=== PATIENT | male | born 1955 | race Caucasian/White ===

== ENCOUNTER 2019-09-09 06:00 | Outpatient (RCR) | payer OTHER, SELFPAY | END 2019-10-09 23:59 | disposition home or self-care (01) | LOC: APO 06:00 | PROVIDERS: Family Provider Family Medicine Adult Medicine; PCP Family Medicine Adult Medicine; Referring Provider Family Medicine Adult Medicine; Visit Provider Nurse Practitioner Family | DX: I69.351 Hemiplegia and hemiparesis following cerebral infarction affecting right dominant side (principal); Z86.73 Personal history of transient ischemic attack (TIA), and cerebral infarction without residual deficits | CPT/HCPCS: 97110; 97112; 97760 ==

== ENCOUNTER 2019-10-13 17:09 | Outpatient (RCR) | payer OTHER, SELFPAY | END 2019-11-07 23:59 | disposition home or self-care (01) | LOC: AOT 17:09 | PROVIDERS: Family Provider Family Medicine Adult Medicine; PCP Family Medicine Adult Medicine; Referring Provider Family Medicine Adult Medicine; Visit Provider Nurse Practitioner Family | DX: I69.352 Hemiplegia and hemiparesis following cerebral infarction affecting left dominant side (principal) | CPT/HCPCS: 97110; 97112; 97530 ==

== ENCOUNTER 2019-11-08 06:00 | Outpatient (RCR) | payer OTHER, SELFPAY | END 2019-12-08 23:59 | disposition home or self-care (01) | LOC: AOT 06:00 | PROVIDERS: Family Provider Family Medicine Adult Medicine; PCP Family Medicine Adult Medicine; Referring Provider Family Medicine Adult Medicine; Visit Provider Nurse Practitioner Family | DX: I69.352 Hemiplegia and hemiparesis following cerebral infarction affecting left dominant side (principal) | CPT/HCPCS: 97110; 97112; 97530 ==

== ENCOUNTER 2019-11-19 09:51 | Emergency (ER) | payer OTHER, SELFPAY ==
[2019-11-19 10:04] VITALS: BMI 25.8
--- NOTE | 2019-11-19 10:07 | ED_ITS ---
HPI - Extremity Problem General: Chief complaint: Extremity Injury, Lower Stated complaint: RIGHT FOOT PAIN Time Seen by Provider: 11/19/19 10:04 History of Present Illness: HPI Narrative: Patient is a 64-year-old male who comes to the ED with right great toe wound. Patient has a past medical history of diabetes with some early signs of neuropathy. Patient states that last Saturday he was walking around without white shoe for about 8 hours and then when he removed his shoe and sock on Saturday he noticed a wound was forming on his right big toe. Patient also has home health that comes out through the [place] and the nurse was setting up referral to computer networking instructor for patient. He has some mild pain when ambulating or pressures put on the right big toe. Patient denies any pain in his right big toe with movement. Patient denies any fever, chest pain, shortness of breath. Associated symptoms: Deny chest pain, fever(s) or rash Review of Systems Const: Denies: fever, chills or fatigue Eyes: Denies: change in vision or eye discomfort ENMT: Denies: throat pain, painful swallowing, nasal discharge or nasal congestion Card: Denies: chest pain, palpitations, edema, swelling of feet/ankles, shortness of breath on exertion or shortness of breath when lying down Resp: Denies: shortness of breath, productive cough or non-productive cough GI: Denies: abdominal pain, nausea, vomiting, diarrhea, constipation or blood in stool : Denies: flank pain, difficulty urinating, painful urination or blood in urine Musc: Reports: extremity pain (right big toe); Denies: neck pain, back pain or extremity swelling Skin/Breast: Reports: new lesion (right big toe wound); Denies: rash Neuro: Denies: headache, numbness in extremities or weakness in extremities PFS ED PFSH: Social History Smoking and tobacco status: never smoked Physical Exam Narrative: EXAM NARRATIVE: Patient is a 64-year-old male who is sitting comfortably on the exam bed when I enter the room. He is showing no signs of acute pain or distress. Const: COMMON NORMALS: oriented x3 HENMT: COMMON NORMALS: normocephalic HEAD & SCALP: normocephalic MOUTH: oral and palatal mucosa normal THROAT: posterior oropharynx normal and uvula midline Neck/C-Spine: COMMON NORMALS: supple GENERAL: Yes normal visual inspection Resp: COMMON NORMALS: normal respiratory effort, no retractions, no use of accessory muscles and clear to auscultation bilaterally AUSCULTATION: clear to auscultation bilaterally Cardio: COMMON NORMALS: regular rate, regular rhythm, S1 normal heart sound, S2 normal heart sound, no gallops, no clicks, no murmurs and peripheral pulses 2+ throughout RATE: regular rate RHYTHM: regular rhythm HEART SOUNDS: S1 normal and S2 normal PERIPHERAL PULSES: pulses 2+ throughout GI: COMMON NORMALS: normal to inspection, nondistended, normoactive bowel sounds, soft to palpation, non-tender and no masses PALPATION: Yes soft : COMMON NORMALS: Yes no CVA tenderness BLADDER/KIDNEY EXAM: Yes no CVA tenderness Back/Pelvis: COMMON NORMALS: no CVA tenderness Extremity: GENERAL: Yes normal exam except as noted RIGHT LOWER EXTREMITY: Yes foot & digits (Erythema, warmth, puss underneath skin.) Right foot and digits: Yes inspection (Right big toe has wound. Some skin tissue looks necrotic and there appears to be some pus underneath the skin.), Yes palpation (mild tenderness of right big toe) and Yes neurovascular exam (intact) Neuro: COMMON NORMALS: oriented x3 and moves all extremities Skin: NARRATIVE SKIN EXAM: Right big toe has wound. Some skin tissue looks necrotic and there appears to be some pus underneath the skin. Erythema and warmth around wound. GENERAL SKIN EXAM: dry skin Course Vital Signs: Vital signs: Vital Signs Temperature 98.3 F 11/19/19 12:48 Pulse Rate 71 11/19/19 12:48 Respiratory Rate 16 11/19/19 12:48 Blood Pressure 144/86 11/19/19 12:48 Pulse Oximetry 98 11/19/19 12:48 MDM - Extremity (Nontraumatic) Lab Data: Attestation: I reviewed the patient's lab results. Labs: Lab Results 11/19/19 11/19/19 11/19/19 Range/Units 11:06 11:06 11:10 WBC 8.8 (4.0-10.0) 10^3/ uL RBC 4.21 (4.1-5.3) 10^6/u L Hgb 11.8 (11.7-16.6) g/dL Hct 36.4 L (42.0-52.0) % MCV 86.5 (80-94) fL MCH 28.0 (28.0-34.0) pg MCHC 32.4 (30.0-36.0) g/dL RDW 12.1 (12.1-15.1) % Plt Count 243 (130-400) 10^3/c mm MPV 9.3 (7.4-10.4) fL Neut % (Auto) 68.6 % Lymph % (Auto) 16.3 % [place] % (Auto) 11.6 % Eos % (Auto) 2.8 % Baso % (Auto) 0.5 % Neut # (Auto) 6.0 (1.8-7.7) 10^3/u L Lymph # (Auto) 1.4 (0.8-4.8) 10^3/u L [place] # (Auto) 1.0 H (0.2-0.9) 10^3/u L Eos # (Auto) 0.3 (0.0-0.8) 10^3/u L Baso # (Auto) 0.0 (0.0-0.1) 10^3/u L Nucleated RBC % (a uto) 0 % Nucleated RBCs # 0.0 /100WBC ESR (0-10) mm/hr Sodium 132 L (136-145) mmol/L Potassium 4.9 (3.5-5.1) mmol/L Chloride 98 (98-107) mmol/L Carbon Dioxide 23 (22-29) mmol/L Anion Gap 15.9 (5-19) BUN 18 (8-23) mg/dL Creatinine 0.9 (0.7-1.2) mg/dL GFR Calculation 85.0 L (90-130) mL/min Glucose 252 H (65-115) mg/dL Calculated Osmolal ity 279 L (285-295) mOsm/k g Calcium 9.5 (8.5-10.5) mg/dL Total Bilirubin 0.2 (0.15-1.2) mg/dL AST 19 (0-40) U/L ALT 20 (0-41) U/L Alkaline Phosphata se 109 (40-130) IU/L C-Reactive Protein 4.2 (0.0-4.9) mg/L Total Protein 7.0 (6.6-8.7) g/dL Albumin 3.7 (3.5-5.2) g/dL Globulin 3.3 (1.3-4.6) g/dL 11/19/19 Range/Units 11:10 WBC (4.0-10.0) 10^3/ uL RBC (4.1-5.3) 10^6/u L Hgb (11.7-16.6) g/dL Hct (42.0-52.0) % MCV (80-94) fL MCH (28.0-34.0) pg MCHC (30.0-36.0) g/dL RDW (12.1-15.1) % Plt Count (130-400) 10^3/c mm MPV (7.4-10.4) fL Neut % (Auto) % Lymph % (Auto) % [place] % (Auto) % Eos % (Auto) % Baso % (Auto) % Neut # (Auto) (1.8-7.7) 10^3/u L Lymph # (Auto) (0.8-4.8) 10^3/u L [place] # (Auto) (0.2-0.9) 10^3/u L Eos # (Auto) (0.0-0.8) 10^3/u L Baso # (Auto) (0.0-0.1) 10^3/u L Nucleated RBC % (a uto) % Nucleated RBCs # /100WBC ESR 17 H (0-10) mm/hr Sodium (136-145) mmol/L Potassium (3.5-5.1) mmol/L Chloride (98-107) mmol/L Carbon Dioxide (22-29) mmol/L Anion Gap (5-19) BUN (8-23) mg/dL Creatinine (0.7-1.2) mg/dL GFR Calculation (90-130) mL/min Glucose (65-115) mg/dL Calculated Osmolal ity (285-295) mOsm/k g Calcium (8.5-10.5) mg/dL Total Bilirubin (0.15-1.2) mg/dL AST (0-40) U/L ALT (0-41) U/L Alkaline Phosphata se (40-130) IU/L C-Reactive Protein (0.0-4.9) mg/L Total Protein (6.6-8.7) g/dL Albumin (3.5-5.2) g/dL Globulin (1.3-4.6) g/dL Imaging Data^: Xray Ortho: Attestation: I personally reviewed and interpreted this imaging study as follows: Radiologist's impression: [address] [address] XRay Report Signed Patient: Kulwinder Sams Unit #: [id number] : 1955 Age/Sex: 64 / M ADM Date: 11/19/19 Loc: ER Room/Bed: Attending Dr: Ordering Provider/Ordering MD: Santo Zapien Date of Service: 11/19/19 Procedure(s): XR foot RT min 3V* 46106 Accession Number(s): [id number] Report Number: [id number] WS: [id number] Right foot, 3 views, 11/19/2019 Clinical Data: Pain on great toe with wound Comparison: None. Findings: No fractures or dislocations are seen. No bone destruction or erosion is noted. The joint spaces and soft tissues are normal. No radiopaque foreign body is seen. XR/XR foot RT min 3V* 31501 Impression: Negative right foot. Dictated By: Renay Hatch MD Signed By: Renay Hatch MD Signed Date/Time: 11/19/19 105 DD/ 105 Discharge Plan Discharge Patient Disposition: Home, Self-Care Clinical Impression: Wound infection Condition: Stable Prescriptions: New Bactrim DS 800-160 mg tablet 1 tab PO BID 10 Days Qty: 20 RF: 0 No Action atorvastatin 80 mg Tablet 80 mg PO DAILY RF: 0 tizanidine 4 mg Tablet 2 mg PO TID PRN (Reason: Spasms) RF: 0 prazosin 1 mg Capsule 1 mg PO QPM RF: 0 Plavix 75 mg Tablet 75 mg PO DAILY RF: 0 metformin 1,000 mg Tablet 1,000 mg PO BID RF: 0 lisinopril 10 mg Tablet 5 mg PO DAILY RF: 0 magnesium oxide 500 mg Tablet 500 mg PO DAILY RF: 0 carbamide peroxide 6.5 % Drops 5 drp OTIC (EAR) BID PRN (Reason: Ear Wax) RF: 0 Vitamin D3 2,000 unit Tablet 2,000 unit PO DAILY RF: 0 Discharge Orders: Discharge Order (Routine); Ordered 11/19/19 Ordered By: Santo Zapien Referrals: Jay Wright MD [Primary Care Provider] - Discharge Diet: Regular Discharge Activity: Resume usual activity and Increase activity as tolerated Patient Instructions: Wound Infection (ED) Activity Restrictions/Additional Instructions: Follow-up with your PCP in 5 to 7 days reevaluation. I am also putting a referral into wound clinic for you. The wound clinic will call you in a couple days to set up an appointment. Take full course of antibiotics as prescribed. Monitor wound changes daily and return to the ED for reevaluation if getting worse after taking a couple days worth of antibiotics. Discharge Date/Time: 11/19/19 12:51 Coding Level of Care Code ED Receptionist Doctor'S Office for Breanne Fwd Exam Comprehensive
[2019-11-19 10:09] VITALS: BP 153/77; PULSE 76; RESP 16; TEMP 36.6; O2SAT 97
[2019-11-19 10:22] VITALS: BP 153/77; PULSE 79; RESP 16; O2SAT 98
--- NOTE | 2019-11-19 10:38 | XR_ITS ---
WS: [id number] Right foot, 3 views, 11/19/2019 Clinical Data: Pain on great toe with wound Comparison: None. Findings: No fractures or dislocations are seen. No bone destruction or erosion is noted. The joint spaces and soft tissues are normal. No radiopaque foreign body is seen. XR/XR foot RT min 3V* 92963 Impression: Negative right foot.
[2019-11-19 11:22] LABS: Basophils % 0.5 %; Eosinophils # 0.3 10^3/uL (0.0-0.8); Eosinophils % 2.8 %; Hematocrit 36.4 % (42.0-52.0); Hemoglobin 11.8 g/dL (11.7-16.6); Lymphocytes # 1.4 10^3/uL (0.8-4.8); Lymphocytes % 16.3 %; Mean Corpuscular HGB Conc 32.4 g/dL (30.0-36.0); Mean Corpuscular Volume 86.5 fL (80-94); Mean Platelet Volume 9.3 fL (7.4-10.4); Monocytes % 11.6 %; Neutrophils % 68.6 %; Nucleated Red Blood Cells % 0 %; Platelet Count 243 10^3/cmm (130-400); Red Blood Count 4.21 10^6/uL (4.1-5.3); Red Cell Distribution Width 12.1 % (12.1-15.1); White Blood Count 8.8 10^3/uL (4.0-10.0)
[2019-11-19 11:24] VITALS: BP 138/74; PULSE 74; RESP 16; O2SAT 98
[2019-11-19 11:40] LABS: Alanine Aminotransferase 20 U/L (0-41); Albumin Level 3.7 g/dL (3.5-5.2); Alkaline Phosphatase 109 IU/L (40-130); Anion Gap 15.9 (5-19); Blood Urea Nitrogen 18 mg/dL (8-23); Calcium 9.5 mg/dL (8.5-10.5); Carbon Dioxide 23 mmol/L (22-29); Chloride 98 mmol/L (98-107); Globulin 3.3 g/dL (1.3-4.6); Glucose 252 mg/dL (65-115); Osmolality Calculated 279 mOsm/kg (285-295); Potassium 4.9 mmol/L (3.5-5.1); Sodium 132 mmol/L (136-145); Total Bilirubin 0.2 mg/dL (0.15-1.2)
--- NOTE | 2019-11-19 11:57 | DCPLANNER ---
manager city was asked to schedule a follow up appointment for patient with Wound Care. manager city called [facility], spoke with Mirella, a follow up appointment is scheduled for Saturday, November 23, 2019 at 2:00 with Marlen. Patient was given an appointment card with the appointment information on it.
[2019-11-19 11:59] LABS: C Reactive Protein 4.2 mg/L (0.0-4.9)
[2019-11-19 12:11] LABS: Aspartate Amino Transferase 19 U/L (0-40)
[2019-11-19 12:21] LABS: Erythrocyte Sedimentation Rate 17 mm/hr (0-10)
[2019-11-19] MEDS: sulfamethoxazole-trimeth DS 160-800 mg Tablet 1 TAB PO (12:24)
[2019-11-19 12:48] VITALS: BP 144/86; PULSE 71; RESP 16; TEMP 36.8; O2SAT 98
--- NOTE | 2019-11-20 12:14 | DCPLANNER ---
computer security manager had message to schedule a followup appointment for patient with Wound [facility]. Patient has [facility], medical case manager informed Mirella of this at [facility], a follow up appointment is scheduled for Saturday, November 23, 2019. computer security manager [facility], spoke with Eddi and informed him that patient was seen in the ER and that a follow up appointment is needed for patient. computer security manager [facility] the [facility].
--- NOTE | 2019-11-24 11:39 | DCPLANNER ---
Patient did attend appointment scheduled for 11.23.19 with Wound Care.
== END 2019-11-19 12:51 | disposition home or self-care (01) ==
PROVIDERS: Emergency Provider Physician Assistant; Family Provider Family Medicine Adult Medicine; PCP Family Medicine Adult Medicine
DX: S91.101A Unspecified open wound of right great toe without damage to nail, initial encounter (principal); E11.22 Type 2 diabetes mellitus with diabetic chronic kidney disease; Z79.84 Long term (current) use of oral hypoglycemic drugs
CPT/HCPCS: 12345; 36415; 73630; 80053; 85025; 85651; 86140; 87040; 87070; 87077; 87186; 87205; 99283

== ENCOUNTER 2019-12-07 10:27 | Outpatient (RCR) | payer OTHER, SELFPAY | END 2019-12-08 23:59 | disposition home or self-care (01) | LOC: WOUND 10:27 | PROVIDERS: Family Provider Family Medicine Adult Medicine; PCP Family Medicine Adult Medicine; Visit Provider Nurse Practitioner Family | DX: E11.621 Type 2 diabetes mellitus with foot ulcer (principal); L97.512 Non-pressure chronic ulcer of other part of right foot with fat layer exposed | CPT/HCPCS: 11042; 87070; 87077; 87176; 87186; 87205; 99203; G0463 ==

== ENCOUNTER 2019-12-09 06:00 | Outpatient (RCR) | payer OTHER, SELFPAY | END 2020-01-07 23:59 | disposition home or self-care (01) | LOC: AOT 06:00 | PROVIDERS: Family Provider Family Medicine Adult Medicine; PCP Family Medicine Adult Medicine; Referring Provider Family Medicine Adult Medicine; Visit Provider Nurse Practitioner Family | DX: I69.351 Hemiplegia and hemiparesis following cerebral infarction affecting right dominant side (principal) | CPT/HCPCS: 97110; 97112; 97530 ==

== ENCOUNTER 2020-01-04 08:33 | Outpatient (RCR) | payer OTHER, SELFPAY ==
--- NOTE | 2019-12-24 14:00 | USCV_ITS ---
Kulwinder Sams Age: 64 Gender: M : 1955 Exam Date: 12/24/2019 14:08 Ordering Phys: Lidia Coyle DO Technologist: Lee Wasserman Exam Location: [facility] [place] Indication: HISTORY: Lower extremity edema. PROCEDURES: Bilateral duplex Venous Insufficiency study of the Deep and Superficial systems was carried out according to normal protocol with the patient in supine positon for deep system and dependent position for the superficial system. FINDINGS: All deep veins demonstrated compressibility without evidence of intraluminal thrombus or increased echogenicity. Spectral analysis of Doppler signals demonstrates normal response to compression maneuvers indicating patency without obstruction. Reflux determinations were made with the patient in the dependent position, the weight being on the contralateral leg. Vein measurements and reflux times are listed below were applicable. No notable reflux was seen at this time. The veins were found to be easily compressible with spontaneous blood flow. Non pulsatile flow pattern. CONCLUSIONS No evidence of DVT in the above-mentioned identifiable veins. No significant venous reflux noted in the above mentioned identifiable veins Venous measurements and the depth from the surface are as mentioned above. Dr Inez Christianson MD [facility] (Electronically Signed) Final Date: 25 December 2019 14:50 S
--- NOTE | 2019-12-25 | USCV_ITS ---
Kulwinder Sams Age: 64 Gender: M : 1955 Exam Date: 12/25/2019 08:17 Ordering Phys: Lidia Coyle DO Technologist: Exam Location: [facility] [place]_ Indication: NON HEALING ULCER RIGHT LEFT Brachial 117.00 mmHg Brachial 116.00 mmHg Pressure (mmHg) Waveform Pressure (mmHg) Waveform 122.00 Above Knee 138.00 117.00 Below Knee 117.00 128.00 DENTAL ASSOCIATE 116.00 119.00 DPA 112.00 1.09 Ankle/Brachial Index 0.99 100.00 Pre-Exercise Toe Pressure 78.00 0.85 Pre-Exercise Toe/Brachial Index 0.67 FINDINGS Normal: Resting ABIs bilaterally. Normal resting TBI on the right side Slightly diminished resting TBI on the left side. CONCLUSIONS Features suggestive of mild peripheral arterial disease on the left side. No significant arterial obstructioin on the right side Dr Inez Christianson MD [facility] (Electronically Signed) Final Date: 25 December 2019 15:01 S
== END 2020-01-07 23:59 | disposition home or self-care (01) ==
LOC: WOUND 08:33
PROVIDERS: Family Provider Family Medicine Adult Medicine; PCP Family Medicine Adult Medicine; Visit Provider Nurse Practitioner Family
DX: E11.621 Type 2 diabetes mellitus with foot ulcer (principal); L97.512 Non-pressure chronic ulcer of other part of right foot with fat layer exposed
CPT/HCPCS: 11042; 93923; 93970; L3260

== ENCOUNTER 2020-01-08 06:00 | Outpatient (RCR) | payer OTHER, SELFPAY | END 2020-02-07 23:59 | disposition home or self-care (01) | LOC: AOT 06:00 | PROVIDERS: PCP Family Medicine Adult Medicine; Referring Provider Family Medicine Adult Medicine; Visit Provider Nurse Practitioner Family | DX: I69.351 Hemiplegia and hemiparesis following cerebral infarction affecting right dominant side (principal) | CPT/HCPCS: 97112; 97530 ==

== ENCOUNTER 2020-01-11 08:46 | Outpatient (RCR) | payer OTHER, SELFPAY | END 2020-02-07 23:59 | disposition home or self-care (01) | LOC: WOUND 08:46 | PROVIDERS: Family Provider Family Medicine Adult Medicine; PCP Family Medicine Adult Medicine; Visit Provider Emergency Medicine | DX: E11.621 Type 2 diabetes mellitus with foot ulcer (principal); L97.512 Non-pressure chronic ulcer of other part of right foot with fat layer exposed | CPT/HCPCS: 11042; 87070; 87077; 87176; 87186; 87205 ==

== ENCOUNTER 2020-01-14 13:54 | Outpatient (CLI) | payer OTHER, SELFPAY | END 2020-01-14 13:55 | disposition home or self-care (01) | LOC: WOUND 13:55 | PROVIDERS: Family Provider Family Medicine Adult Medicine; PCP Family Medicine Adult Medicine; Visit Provider Nurse Practitioner Family | DX: E11.621 Type 2 diabetes mellitus with foot ulcer (principal); L97.512 Non-pressure chronic ulcer of other part of right foot with fat layer exposed | CPT/HCPCS: G0463 ==

== ENCOUNTER 2020-01-18 09:25 | Outpatient (CLI) | payer OTHER, SELFPAY | END 2020-01-18 09:26 | disposition home or self-care (01) | LOC: WOUND 09:25 | PROVIDERS: Family Provider Family Medicine Adult Medicine; PCP Family Medicine Adult Medicine; Visit Provider Nurse Practitioner Family | DX: E11.621 Type 2 diabetes mellitus with foot ulcer (principal); L97.512 Non-pressure chronic ulcer of other part of right foot with fat layer exposed | CPT/HCPCS: 11042 ==

== ENCOUNTER 2020-01-25 09:31 | Outpatient (CLI) | payer OTHER, SELFPAY | END 2020-01-25 09:32 | disposition home or self-care (01) | LOC: WOUND 09:32 | PROVIDERS: PCP Family Medicine Adult Medicine; Visit Provider Nurse Practitioner Family | DX: E11.621 Type 2 diabetes mellitus with foot ulcer (principal); L97.512 Non-pressure chronic ulcer of other part of right foot with fat layer exposed | CPT/HCPCS: 11042 ==

== ENCOUNTER 2020-02-04 13:04 | Outpatient (CLI) | payer OTHER, SELFPAY | END 2020-02-04 13:05 | disposition home or self-care (01) | LOC: WOUND 13:05 | PROVIDERS: PCP Family Medicine Adult Medicine; Visit Provider Nurse Practitioner Family | DX: E11.621 Type 2 diabetes mellitus with foot ulcer (principal); L97.512 Non-pressure chronic ulcer of other part of right foot with fat layer exposed | CPT/HCPCS: 11042 ==

== ENCOUNTER 2020-02-08 06:00 | Outpatient (RCR) | payer OTHER, SELFPAY | END 2020-03-08 23:59 | disposition home or self-care (01) | LOC: AOT 06:00 | PROVIDERS: PCP Family Medicine Adult Medicine; Visit Provider Nurse Practitioner Family | DX: I69.351 Hemiplegia and hemiparesis following cerebral infarction affecting right dominant side (principal) | CPT/HCPCS: 97110; 97112; 97530 ==

== ENCOUNTER 2020-02-08 09:10 | Outpatient (CLI) | payer OTHER, SELFPAY | END 2020-02-08 09:11 | disposition home or self-care (01) | LOC: WOUND 09:11 | PROVIDERS: Family Provider Family Medicine Adult Medicine; PCP Family Medicine Adult Medicine; Visit Provider Nurse Practitioner Family | DX: E11.621 Type 2 diabetes mellitus with foot ulcer (principal); L97.512 Non-pressure chronic ulcer of other part of right foot with fat layer exposed | CPT/HCPCS: 11042 ==

== ENCOUNTER 2020-02-15 08:55 | Outpatient (CLI) | payer OTHER, SELFPAY | END 2020-02-15 08:56 | disposition home or self-care (01) | LOC: WOUND 08:55 | PROVIDERS: Family Provider Family Medicine Adult Medicine; PCP Family Medicine Adult Medicine; Visit Provider Nurse Practitioner Family | DX: E11.621 Type 2 diabetes mellitus with foot ulcer (principal); L97.512 Non-pressure chronic ulcer of other part of right foot with fat layer exposed | CPT/HCPCS: 11042 ==

== ENCOUNTER 2020-02-22 08:59 | Outpatient (CLI) | payer OTHER, SELFPAY | END 2020-02-22 09:00 | disposition home or self-care (01) | LOC: WOUND 09:00 | PROVIDERS: Family Provider Family Medicine Adult Medicine; PCP Family Medicine Adult Medicine; Visit Provider Nurse Practitioner Family | DX: E11.621 Type 2 diabetes mellitus with foot ulcer (principal); L97.512 Non-pressure chronic ulcer of other part of right foot with fat layer exposed | CPT/HCPCS: 11042 ==

== ENCOUNTER 2020-02-29 08:55 | Outpatient (CLI) | payer OTHER, SELFPAY | END 2020-02-29 08:56 | disposition home or self-care (01) | LOC: WOUND 08:56 | PROVIDERS: Family Provider Family Medicine Adult Medicine; PCP Family Medicine Adult Medicine; Visit Provider Nurse Practitioner Family | DX: Z09 Encounter for follow-up examination after completed treatment for conditions other than malignant neoplasm (principal) | CPT/HCPCS: 99212 ==

== ENCOUNTER 2020-03-09 06:00 | Outpatient (RCR) | payer OTHER, SELFPAY | END 2020-04-08 23:59 | disposition home or self-care (01) | LOC: AOT 06:00 | PROVIDERS: Family Provider Family Medicine Adult Medicine; PCP Family Medicine Adult Medicine; Visit Provider Nurse Practitioner Family | DX: I69.352 Hemiplegia and hemiparesis following cerebral infarction affecting left dominant side (principal) | CPT/HCPCS: 97110; 97112; 97530 ==

== ENCOUNTER 2020-04-09 06:00 | Outpatient (RCR) | payer OTHER, SELFPAY | END 2020-05-09 23:59 | disposition home or self-care (01) | LOC: AOT 06:00 | PROVIDERS: Family Provider Family Medicine Adult Medicine; PCP Family Medicine Adult Medicine; Visit Provider Nurse Practitioner Family | DX: I69.351 Hemiplegia and hemiparesis following cerebral infarction affecting right dominant side (principal) | CPT/HCPCS: 97110; 97112; 97530 ==

== ENCOUNTER → 2020-05-11 11:23 | Outpatient (BNVA) | payer OTHER, MEDICARE, SELFPAY | PROVIDERS: Family Provider Family Medicine Adult Medicine; PCP Family Medicine Adult Medicine; Visit Provider Nurse Practitioner Family | DX: J06.9 Acute upper respiratory infection, unspecified (principal) | CPT/HCPCS: 87635 ==

== ENCOUNTER 2020-12-01 17:21 | Emergency (ER) | payer OTHER, MEDICARE, SELFPAY ==
[2020-12-01 17:23] VITALS: BP 224/105; PULSE 73; RESP 18; TEMP 36.6; O2SAT 98; BMI 27.2
[2020-12-01 17:50] VITALS: O2SAT 95
--- NOTE | 2020-12-01 17:54 | XR_ITS ---
WS: [id number] Exam: XR chest 1V portable [id number] Date/Time of Exam: 12/01/2020 6:04 PM Reason For Exam: HTN Comparison 02/20/2018. Findings: The lungs are clear and fully expanded. Costophrenic angles are sharp. No infiltrates. Bronchovascula r relief appears normal. Cardiac silhouette is unremarkable. Bony elements are intact. XR/XR chest 1V portable [id number] IMPRESSION: Unremarkable chest radiograph.
--- NOTE | 2020-12-01 17:54 | ECG_ITS ---
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 Measurements Intervals [place] Rate: 66 P: 43 [place]: 168 QRS: -24 QRSD: 101 T: 37 QT: 396 QTc: 416 Interpretive Statements SINUS RHYTHM BORDERLINE LEFT AXIS DEVIATION [QRS AXIS < -20] Compared to ECG 02/20/2018 10:34:20 Myocardial infarct finding no longer present Electronically Signed On 12-01-2020 20:39:57 CDT by Inez Christianson M.D. [id number]
--- NOTE | 2020-12-01 17:55 | W.ED.GENADLT ---
HPI - General Adult General: Chief complaint: General Medical Stated complaint: HIGH BP/stroke history Time Seen by Provider: 12/01/20 17:44 Source: patient and family (spouse) Mode of arrival: ambulatory Limitations: no limitations History of Present Illness: HPI narrative: 65-year-old male patient presents to the emergency department with complaints/concern of high blood pressure. He states previous strokes history, thrombolytic, residual left upper and lower extremity weakness. Stroke occurred 3 years ago, uncontrolled hypertension as cause of CVA. Primary care provider's [facility]; states the nurse came to his home today, blood pressure was noted to be elevated earlier this morning; 200/110. His spouse reports took his blood pressure again this afternoon with blood pressure reading 200/110. She reports does not routinely take his blood pressure, unknown what baseline blood pressure readings are. He remains on lisinopril daily, reports compliance with medication regimen. He has history of diabetes, glucose reading 135 before he left home. He denies chest pain shortness of breath; spouse reports he did not have symptoms prior to his previous stroke and is concerned he could be in danger due to high blood pressure. Upon exam he is also stating has a floater in the right eye, this has been chronic for several weeks. He recently received ocular injections by Dr. Maurice to the right eye. He reports floater in the right eye is better than it was 2 weeks ago. He denies difficulty with vision, denies flashes of light or denies difficulty seeing from the right eye. He reports has upcoming appointment with Dr. Maurice for follow-up. Associated symptoms: Deny chest pain, diaphoresis, dyspnea, headache(s), malaise, nausea, rash, palpitations or vomiting Review of Systems General: Reports: 10 or more systems reviewed and unremarkable except in HPI and below Const: Denies: fever(s), chills, fatigue, malaise or diaphoresis Eyes: Reports: floaters (rt eye - chronic); Denies: change in vision, blurry vision, eye redness or seeing flashes ENMT: Denies: throat pain, dental pain or disequilibrium Card: Denies: chest pain, palpitations or irregular heart rhythm Resp: Denies: dyspnea, productive cough, non-productive cough or wheezing GI: Denies: abdominal pain, nausea or vomiting : Denies: dysuria Musc: Reports: limited range of motion (LLE and LUE due to CVA 2017); Denies: neck pain, back pain or joint pain Skin/Breast: Denies: rash or pruritus Neuro: Denies: headache(s), weakness in extremities or behavioral changes Psych: Denies: anxiety or depression Neel/Lymph: Denies: easy bruising PFSH ED PFSH: Medical History CVA (cerebrovascular accident) Diabetes History of CVA with residual deficit HTN (hypertension) Social History (Updated 12/01/20 @ 18:05 by ALDO Love) Smoking and tobacco status: never smoked Alcohol intake: never Substance/Drug Use: never Lives independently: Yes Household members: spouse Physical Exam Const: COMMON NORMALS: no acute distress, patient oriented x3, healthy appearing, alert and well nourished EXAM LIMITATIONS: no altered mental status and no physical limitations GENERAL APPEARANCE: cooperative, comfortable, well kempt, well developed and well hydrated; not anxious NUTRITIONAL APPEARANCE: thin ORIENTATION/CONSCIOUSNESS: Yes awake, Yes oriented to person, Yes oriented to place and Yes oriented to time; not confused and not patient obtunded HENMT: COMMON NORMALS: normocephalic, atraumatic, Normal external nose present and moist oral mucous membranes HEAD & SCALP: normocephalic and atraumatic FACE & SINUS: normal facial exam and face symmetric NOSE: Normal external nose present MOUTH: Normal oral and palatal mucosa present THROAT: posterior oropharynx normal Eye: COMMON NORMALS: Equal, round and reactive pupils present, EOMs intact bilaterally, conjunctivae normal, no scleral icterus and normal visual long by confrontation GENERAL EYE: appearance normal, both eyes and all related structures and normal light reflex VISUAL ACUITY: No complete vision loss VISUAL LONG: No peripheral vision loss, No central vision loss, No left visual field cut and No right visual field cut ALIGNMENT: Yes alignment normal PERIORBITAL: periorbital findings normal CONJUNCTIVA: Yes conjunctivae normal PUPIL: Yes Equal, round and reactive pupils present, Yes pupil size - right Right pupil size (mm): 3 and Yes pupil size - left Left pupil size (mm): 3 DIRECT OPHTHALMOSCOPY: Yes normal light reflex Neck/C-Spine: COMMON NORMALS: full ROM and no lymphadenopathy GENERAL: Yes normal visual inspection and Yes trachea midline CERVICAL SPINE: Yes cervical ROM normal Lymph: LYMPHATIC: no lymphadenopathy noted Chest: COMMONS NORMALS: normal inspection of the chest and normal palpation of entire chest wall Resp: COMMON NORMALS: normal respiratory effort, No retractions, No use of accessory muscles and clear to auscultation bilaterally EFFORT & INSPECTION: Yes able to speak in complete sentences, No labored, No retractions and No audible wheezes AUSCULTATION: clear to auscultation bilaterally Cardio: COMMON NORMALS: regular rate, regular rhythm, S1 normal heart sound present, S2 normal heart sound present and Peripheral pulses 2+ throughout RATE: regular rate RHYTHM: regular rhythm HEART SOUNDS: S1 normal heart sound present and S2 normal heart sound present PERIPHERAL PULSES: Peripheral pulses 2+ throughout GI: COMMON NORMALS: Normal to inspection, nondistended, normoactive bowel sounds present, Soft to palpation and non-tender INSPECTION: Yes normal to inspection PALPATION: Yes Soft to palpation : COMMON NORMALS: Yes no CVA tenderness BLADDER/KIDNEY EXAM: Yes no CVA tenderness Back/Pelvis: COMMON NORMALS: no CVA tenderness and thoracic and lumbar spine normal to inspection Extremity: COMMON NORMALS: normal to inspection and capillary refill normal Neuro: CATRACHO COMA SCALE: document GCS findings [place] coma scale eye opening: Spontaneous [place] coma scale verbal response: Orientated [place] coma scale motor response: Obey commands [place] coma scale total score: 15 COMMON NORMALS: patient oriented x3 and no focal motor deficits SENSORIUM/ORIENTATION: Yes alert, Yes oriented to person, Yes oriented to place and Yes oriented to time SPEECH: speech normal GAIT: Yes Normal gait present MOTOR EXAM: Abnormal motor strength present (LUE 3/5; LLE 3/5 - RUE and RLE 5/5) Psych: COMMON NORMALS: mental status grossly normal, Normal thought process present and cooperative APPEARANCE: Yes well kempt ACTIVITY/MOTOR BEHAVIOR: Yes appropriate eye contact THOUGHT PROCESS: Normal thought process present Skin: COMMON NORMALS: no rashes or lesions noted, turgor normal, no petechiae and no mottling GENERAL SKIN EXAM: no rashes or lesions noted, elasticity normal and turgor normal Course Vital Signs: Vital signs: Vital Signs Temperature 97.9 F 12/01/20 19:30 Pulse Rate 62 12/01/20 19:30 Respiratory Rate 20 H 12/01/20 19:30 Blood Pressure 188/94 12/01/20 19:30 Pulse Oximetry 98 12/01/20 19:30 MDM - General Adult MDM Narrative: Medical decision making narrative: 65-year-old male patient presents to the emergency department with known hypertension. Blood pressure is noted to be elevated upon exam, 224/105. He was administered metoprolol tartrate IV. He was also administered an additional dose of lisinopril. Blood pressure did lower, he reports previous history of this in the past with decrease dosage of blood pressure due to low blood pressure. He reports has not followed up with [facility] secondary to Covid for primary care provider visit in 1 to 2 years. rehab services aide referral placed today for patient to have primary care appointment for blood pressure issue. He is not symptomatic, he denies headache or chest pain/shortness of breath. He states is wanting to go home and does not want to be here. His is comfortable with monitoring his blood pressure at home, lisinopril increased to 5 mg p.o. twice daily with recommendation to monitor his blood pressure daily and record and to take recordings to primary care follow-up. EKG was without acute abnormalities. Lab Data: Labs: Lab Results 12/01/20 12/01/20 12/01/20 Range/Units 18:23 18:23 18:23 WBC 9.4 (4.0-10.0) 10^3/ uL RBC 4.33 (4.1-5.3) 10^6/u L Hgb 12.4 (11.7-16.6) g/dL Hct 37.8 L (42.0-52.0) % MCV 87.3 (80-94) fL MCH 28.6 (28.0-34.0) pg MCHC 32.8 (30.0-36.0) g/dL RDW 12.7 (12.1-15.1) % Plt Count 234 (130-400) 10^3/c mm MPV 10.0 (7.4-10.4) fL Neut % (Auto) 68.7 % Lymph % (Auto) 17.0 % [place] % (Auto) 9.8 % Eos % (Auto) 3.9 % Baso % (Auto) 0.4 % Neut # (Auto) 6.42 (1.8-7.7) 10^3/u L Lymph # (Auto) 1.6 (0.8-4.8) 10^3/u L [place] # (Auto) 0.9 (0.2-0.9) 10^3/u L Eos # (Auto) 0.4 (0.0-0.8) 10^3/u L Baso # (Auto) 0.0 (0.0-0.1) 10^3/u L Nucleated RBC % (a uto) 0 % Nucleated RBCs # 0.0 /100WBC Sodium 143 (136-145) mmol/L Potassium 4.3 (3.5-5.1) mmol/L Chloride 107 (98-107) mmol/L Carbon Dioxide 27 (22-29) mmol/L Anion Gap 13.3 (5-19) BUN 13 (8-23) mg/dL Creatinine 0.8 (0.7-1.2) mg/dL GFR Calculation 97.0 (90-130) mL/min Glucose 121 H (65-115) mg/dL Calculated Osmolal ity 297 H (285-295) mOsm/k g Calcium 8.3 L (8.5-10.5) mg/dL Total Bilirubin 0.3 (0.15-1.2) mg/dL AST 19 (0-40) U/L ALT 22 (0-41) U/L Alkaline Phosphata se 100 (40-130) IU/L Troponin T Baselin e 15 (0-15) ng/L Total Protein 6.4 L (6.6-8.7) g/dL Albumin 4.2 (3.5-5.2) g/dL Globulin 2.2 (1.3-4.6) g/dL EKG Data^: EKG 1: EKG interpretation date: 12/01/20 EKG interpretation time: 18:18 Prior EKG tracings: not available for review Other EKG comments: SINUS RHYTHM BORDERLINE LEFT AXIS DEVIATION [QRS AXIS < -20] Compared to ECG 02/20/2018 10:34:20 Myocardial infarct finding no longer present Ventricular rate 66 Discharge Plan Discharge Patient Disposition: Home Clinical Impression: HTN (hypertension) Qualifiers: Hypertension type: essential hypertension Qualified Code(s): I10 - Essential (primary) hypertension Condition: Stable Prescriptions: New lisinopril 5 mg tablet 5 mg PO BID Qty: 20 RF: 0 Discontinued lisinopril 10 mg Tablet 5 mg PO DAILY@06 RF: 0 No Action atorvastatin 80 mg Tablet 80 mg PO BEDTIME RF: 0 tizanidine 4 mg Tablet See Rx Instructions .ROUTE .COMPLEX PRN (Reason: Spasms) RF: 0 prazosin 1 mg Capsule 1 mg PO QPM RF: 0 clopidogrel [Plavix] 75 mg Tablet 75 mg PO DAILY@06 RF: 0 metformin 1,000 mg Tablet 1,000 mg PO BID RF: 0 latanoprost 0.005 % drops 1 drp ophthalmic (eye) BEDTIME RF: 0 Lumigan 0.01 % drops 1 drp ophthalmic (eye) QPM RF: 0 Discharge Orders: Discharge ED (Routine); Ordered 12/01/20 Ordered By: Kacie Gaytan Referrals: Jay Wright MD [Primary Care Provider] - Discharge Diet: Cardiac Discharge Activity: Resume usual activity Patient Instructions: Chronic Hypertension (ED), Hypertensive Crisis (ED), Opioid Safety Activity Restrictions/Additional Instructions: Increase lisinopril to 5 mg by mouth twice daily rehab services aide will be contacting [facility], appointment will be needed in the next 5 to 7 days Low-sodium diet encouraged, low-sodium diet will help lower blood pressure Take blood pressure daily while at rest for 30 minutes. Record blood pressure reading and take to your primary care provider Return to the emergency department if you develop worsening symptoms such as chest pain shortness of breath nausea or headache. Coding Level of Care Code ED Patternator for Breanne Arenas Exam Comprehensive
--- NOTE | 2020-12-01 18:03 | PC.PHAR ---
PTS STATES THE PT TAKES THE MEDICATIONS ENTERED-PT BROUGHT IN MED LIST FROM THE [facility]-PTS [facility] MED LIST HAD THE PT TOOK MAGNESIUM AND VIT D3 PT AND PTS STATES THE PT NO LONGER TAKES THOSE-PT STATES HE IS STILL WAITING FOR THE [facility] TO SEND HIS LATANOPROST AND LUMIGAN
[2020-12-01 18:26] VITALS: BP 197/102; PULSE 64; RESP 16; O2SAT 97
[2020-12-01 18:45] LABS: Basophils % 0.4 %; Eosinophils # 0.4 10^3/uL (0.0-0.8); Eosinophils % 3.9 %; Hematocrit 37.8 % (42.0-52.0); Hemoglobin 12.4 g/dL (11.7-16.6); Lymphocytes # 1.6 10^3/uL (0.8-4.8); Mean Corpuscular HGB Conc 32.8 g/dL (30.0-36.0); Mean Corpuscular Hemoglobin 28.6 pg (28.0-34.0); Mean Corpuscular Volume 87.3 fL (80-94); Monocytes # 0.9 10^3/uL (0.2-0.9); Monocytes % 9.8 %; Neutrophils # 6.42 10^3/uL (1.8-7.7); Neutrophils % 68.7 %; Nucleated Red Blood Cells % 0 %; Platelet Count 234 10^3/cmm (130-400); Red Blood Count 4.33 10^6/uL (4.1-5.3); Red Cell Distribution Width 12.7 % (12.1-15.1); White Blood Count 9.4 10^3/uL (4.0-10.0)
[2020-12-01] MEDS: lisinopril 5 mg Tablet PO (18:49)
[2020-12-01] MEDS: metoprolol tartrate 1 mg/1 mL SDV 5 mL 2.5 MG IV (18:49)
[2020-12-01 19:03] LABS: Alanine Aminotransferase 22 U/L (0-41); Albumin Level 4.2 g/dL (3.5-5.2); Alkaline Phosphatase 100 IU/L (40-130); Anion Gap 13.3 (5-19); Aspartate Amino Transferase 19 U/L (0-40); Blood Urea Nitrogen 13 mg/dL (8-23); Calcium 8.3 mg/dL (8.5-10.5); Carbon Dioxide 27 mmol/L (22-29); Chloride 107 mmol/L (98-107); Globulin 2.2 g/dL (1.3-4.6); Glucose 121 mg/dL (65-115); Osmolality Calculated 297 mOsm/kg (285-295); Potassium 4.3 mmol/L (3.5-5.1); Sodium 143 mmol/L (136-145); Total Bilirubin 0.3 mg/dL (0.15-1.2); Total Protein 6.4 g/dL (6.6-8.7); Troponin(5th) Baseline 15 ng/L (0-15)
[2020-12-01 19:30] VITALS: BP 188/94; PULSE 62; RESP 20; TEMP 36.6; O2SAT 98
--- NOTE | 2020-12-08 14:28 | DCPLANNER ---
[employer] rede[employer] site manager had message to schedule a follow up appointment for patient with his [facility] provider. 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
== END 2020-12-01 19:32 | disposition home or self-care (01) ==
PROVIDERS: Emergency Provider Nurse Practitioner Family; PCP Family Medicine Adult Medicine
DX: I10 Essential (primary) hypertension (principal); Z79.02 Long term (current) use of antithrombotics/antiplatelets; Z79.84 Long term (current) use of oral hypoglycemic drugs; Z86.73 Personal history of transient ischemic attack (TIA), and cerebral infarction without residual deficits; E11.9 Type 2 diabetes mellitus without complications
CPT/HCPCS: 71045; 80053; 84484; 85025; 93005; 96374; 99284; J3490

== ENCOUNTER 2021-08-29 11:12 | Outpatient (RCR) | payer OTHER, MEDICARE, SELFPAY | END 2021-09-08 23:59 | disposition home or self-care (01) | LOC: TPT 11:12 | PROVIDERS: PCP Family Medicine Adult Medicine; Referring Provider Nurse Practitioner Family; Visit Provider Nurse Practitioner Family | DX: I69.352 Hemiplegia and hemiparesis following cerebral infarction affecting left dominant side (principal) | CPT/HCPCS: 97110; 97112; 97163 ==

== ENCOUNTER 2021-09-09 06:00 | Outpatient (RCR) | payer OTHER, SELFPAY | END 2021-09-19 23:59 | disposition home or self-care (01) | LOC: TPT 06:00 | PROVIDERS: PCP Family Medicine Adult Medicine; Referring Provider Nurse Practitioner Family; Visit Provider Nurse Practitioner Family | DX: I69.352 Hemiplegia and hemiparesis following cerebral infarction affecting left dominant side (principal) | CPT/HCPCS: 97110 ==

== ENCOUNTER 2022-01-02 14:24 | Outpatient (CLI) | payer OTHER, SELFPAY ==
[2022-01-02 15:20] LABS: Reticulocyte % 0.6 % (0.5-2.0)
[2022-01-02 15:21] LABS: Basophils % 0.5 %; Eosinophils # 0.2 10^3/uL (0.0-0.8); Eosinophils % 2.8 %; Hematocrit 32.7 % (42.0-52.0); Hemoglobin 10.7 g/dL (11.7-16.6); Lymphocytes # 1.3 10^3/uL (0.8-4.8); Mean Corpuscular HGB Conc 32.7 g/dL (30.0-36.0); Mean Corpuscular Hemoglobin 28.8 pg (28.0-34.0); Mean Corpuscular Volume 87.9 fl (80-94); Mean Platelet Volume 10.1 fL (7.4-10.4); Monocytes # 0.7 10^3/uL (0.2-0.9); Monocytes % 8.9 %; Neutrophils # 5.92 10^3/uL (1.8-7.7); Nucleated Red Blood Cells % 0 %; Platelet Count 244 10^3/cmm (130-400); Red Blood Count 3.72 10^6/uL (4.1-5.3); Red Cell Distribution Width 12.4 % (12.1-15.1); White Blood Count 8.3 10^3/uL (4.0-10.0)
[2022-01-02 15:46] LABS: Ferritin 516 ng/mL (30-400); Iron 71 ug/dL (59-158); Percent Saturation 35.6 % (20-50); Total Iron Binding Capacity 199 mcg/dl; Unsaturated Iron Binding 128 ug/dL (112-347)
[2022-01-02 15:58] LABS: Vitamin B12 326 pg/mL (232-1245)
--- NOTE | 2022-01-03 10:04 | ONC CON_ITS ---
Dr. Kline New Patient Note Patient: Kulwinder Sams Unit #: [id number]: 1955 Dicatated By: David Kline M.D.Date of Visit: Jan 02, 2022 Onc MED New Patient/Consult Referring Physician: Leeann Paulson A.P.N. History of Present Illness: Mr. Kulwinder Sams, is a 66-year-old gentleman with a history of hemorrhagic stroke causing left-sided weakness, found to have iron deficiency anemia during his routine 3 monthly follow-up lab work-up, as per patient around 2020, nursing practitioner called him and informed him about low hemoglobin and send him oral iron supplements and also did some stool test which came back negative for any blood. He has been taking oral iron 1 tablet a day and tolerating well. Patient denies any history of anemia prior to that, denies any history of blood transfusion. Patient said he never had colonoscopy done but may be EGD about 10 years ago. Denies any melena or hematochezia but now dark-colored stools since on oral iron, no hemoptysis or hematemesis, no hematuria, no jaundice, no abdominal pain, no weight loss rather gain, no night sweats, no fever chills, patient denies alcohol use but has history of alcohol use in the past, denies smoking. Patient has history of left-sided weakness due to hemorrhagic stroke about 3 years ago so not very active physically. Denies any shortness of breath or dyspnea on exertion, denies any palpitation.As per patient since he is on oral iron, he is feeling well but his hemoglobin is going up and down so he was sent to us for evaluation regarding need for parenteral iron. Past Medical History: Mr. Sams's medical history consists of adjustment disorder, cerebral infarction, depression, hyperlipidemia, hypertensive heart disease, insomnia, internal carotid artery stenosis, left side spastic hemiplegia, ocular hypertension, post traumatic stress disorder, and type II diabetes. Past Surgical History: There is no documented surgical history. Medications: Latanoprost 1 Drop(s) (of 0.005 %) Solution Ophthalmic at bedtime, metFORMIN HCl 1 Tablet (of 500 mg) Oral daily, Prazosin HCl 1 Capsule (of 1 mg) Oral at bedtime, tiZANidine HCl 0.5 Tablet (of 4 mg) Oral t.i.d. PRN Allergies: bee stings Social History: Mr. Sams is . Mr. Sams has never smoked. He has no history of drinking. Family History: There is no documented family history. Review Of Symptoms: Review of Systems is not available for this patient. Vital Signs: Performed on Jan 02, 2022 15:48: 66.00 in, 194/94 mm(hg) (HIGH), Performed on Jan 02, 2022 15:47: 1, 0, 26.31, 1.83 sq.m, 99 %, 66 /min, 16 /min, 98.0 F (LOW), and 163.0 lbs. Performance Status: 1 - No physically strenuous activity, but ambulatory and able to carry out light or sedentary work (e.g. office work, light house work). (ECOG) Physical Examination: ENMT - No mouth sores, no thrush, no jaundice, no cervical lymphadenopathy, Respiratory - Lungs are clear to auscultation, Cardiovascular - Regular rate and rhythm of heart, Abdomen - Soft, bowel sounds present, Extremities - No visible edema, on limited neuro exam left-sided weakness. Lab/Imaging: Most recent lab results are not available for this patient. Impression: Normocytic normochromic anemia, diagnosed in July 2021, etiology unclear could be multifactorial including iron deficiency/B12 deficiency or anemia of chronic disease or underlying myelodysplasia. On oral iron since August 2021 History of hemorrhagic stroke causing left-sided weakness Plan: Discussed with patient regarding his labs white blood count 8.3 hemoglobin 10.7 g hematocrit 32.7 platelets 244,000 MCV 87.9 reticulocyte count 0.6, iron studies shows iron saturation 35.6% TIBC 199 ferritin 516, iron 71, B12 326 Clinically, patient is doing well, has well compensated mild/moderate anemia, on oral iron, 1 tablet a day, tolerating well, his follow-up lab work-up done today shows improvement in his hemoglobin compared to 9.7 g on December 14, 2021 His iron stores is adequate, B12 is on the low side of normal range, at this point, as follow-up CBC showed improvement in hemoglobin, we will continue with daily oral iron as he is tolerating it well, for better absorption, patient was advised to take it on empty stomach with vitamin C or orange juice. And follow-up CBC shows no further improvement in hemoglobin while iron stores remained within normal range, may consider adding B12 supplement as B12 level on the lower side of normal range can cause anemia too. And we will also refer him to gastroenterology for EGD/colonoscopy to rule out source of chronic GI blood loss causing iron deficiency anemia. Return to clinic in 1 month with CBC and iron studies Signed By: David Kline M.D. <<Signature on File>>
== END 2022-01-02 14:25 | disposition home or self-care (01) ==
PROVIDERS: PCP Family Medicine Adult Medicine; Visit Provider Internal Medicine Hematology & Oncology
DX: D64.9 Anemia, unspecified (principal); I69.354 Hemiplegia and hemiparesis following cerebral infarction affecting left non-dominant side
CPT/HCPCS: 36415; 82607; 82728; 83540; 83550; 85025; 85045; 99204

== ENCOUNTER 2022-01-26 09:07 | Oncology outpatient (recurring) (ONCR) | payer OTHER, SELFPAY ==
[2022-01-26] MEDS: cyanocobalamin 1,000 mcg/mL SDV 1000 MCG IM (11:14)
== END 2022-02-06 23:59 | disposition home or self-care (01) ==
LOC: ONCMED 09:09
PROVIDERS: PCP Family Medicine Adult Medicine; Visit Provider Internal Medicine Hematology & Oncology
DX: D50.9 Iron deficiency anemia, unspecified (principal); D51.9 Vitamin B12 deficiency anemia, unspecified; Z79.899 Other long term (current) drug therapy
CPT/HCPCS: 82728; 83540; 83550; 85025; 96372; 99214; 99999; J3420

== ENCOUNTER → 2022-02-15 14:35 | Outpatient (BNVA) | payer OTHER, SELFPAY | PROVIDERS: PCP Nurse Practitioner Family; Visit Provider Internal Medicine Cardiovascular Disease | DX: I10 Essential (primary) hypertension (principal); R01.1 Cardiac murmur, unspecified; E78.5 Hyperlipidemia, unspecified; E11.9 Type 2 diabetes mellitus without complications; Z86.73 Personal history of transient ischemic attack (TIA), and cerebral infarction without residual deficits; R09.89 Other specified symptoms and signs involving the circulatory and respiratory systems; Z79.84 Long term (current) use of oral hypoglycemic drugs | CPT/HCPCS: 93005; 99204 ==

== ENCOUNTER → 2022-03-07 15:02 | Outpatient (BNVA) | payer OTHER, SELFPAY | PROVIDERS: PCP Nurse Practitioner Family; Visit Provider Surgery | DX: D64.9 Anemia, unspecified (principal) | CPT/HCPCS: 99203 ==

== ENCOUNTER 2022-03-08 14:06 | Outpatient (CLI) | payer OTHER, SELFPAY ==
--- NOTE | 2022-03-08 13:30 | USCV_ITS ---
Kulwinder Sams Age: 66 Gender: M : 1955 Exam Date: 03/08/2022 14:18 Ordering Phys: Inez Christianson MD ([email or web address]) Technologist: LUCAS Exam Location: [facility] [place] Indication: EVAL FOR CAROTID STENOSIS Risk Factors: Previous Vascular Surgery: Right Brachial BP: / Left Brachial BP: / Right Left Velocity (cm/s) Spectral Plaque Velocity (cm/s) Spectral Plaque Syst/Diast Broadening Syst/Diast Broadening 82.90/ 9.20 Prox CCA 98.50 / 13.90 64.90/ 17.10 Mid CCA 85.30 / 19.70 59.80/ 8.50 Distal CCA 70.90 / 16.60 230.10/66.10 Prox ICA 70.60 / 20.90 227.90/47.90 Mid ICA 76.10 / 27.80 107.80/43.40 Distal ICA 76.10 / 29.80 275.95 ECA 111.00 2.77 ICA/CCA 0.77 Antegrade Vertebral Antegrade 105.0/ 27.20 cm/s 24.10/ 10.10 cm/s 0 Tri Subclavian Tri 188.1 152.3 0 0 FINDINGS Moderate to heavy heterogeneous plaques of the right bifurcation proximal carotid artery. Moderate heterogeneous plaques of the left bifurcation and proximal internal carotid artery. Antegrade flow in the vertebral arteries bilaterally. Intimal thickening and minimal plaques in the common carotid arteries bilaterally. Elevated Doppler velocities in the right external carotid artery CONCLUSIONS Moderate to heavy heterogeneous plaques of the right bifurcation proximal carotid artery with Doppler features suggesting 50 to 69% stenosis. Moderate heterogeneous plaques at the left bifurcation and proximal internal carotid artery, suggesting less than 50% stenosis. Elevated velocity in the external carotid artery on the right side, suggestive of hemodynamically significant stenosis. Intimal thickening and minimal plaques in the common carotid arteries bilaterally. No similar previous studies are available for comparison Dr Inez Christianson MD [facility] (Electronically Signed) Final Date: 13 March 2022 09:13 S
--- NOTE | 2022-03-08 14:15 | USCV_ITS ---
Kulwinder Sams Age: 66 Gender: M : 1955 Exam Date: 03/08/2022 14:35 Ordering Phys: Inez Christianson MD ([email or web address]) Technologist: LUCAS Exam Location: [facility] [place] Indication: AORTIC STENOSIS BP: 154 / 67 HR: 62 Rhythm: Sinus Technical Quality: Adequate MEASUREMENTS (Male / Female) Normal Values 2D ECHO LV Diastolic Diameter PLAX 4.6 cm 4.2 - 5.9 / 3.9 - 5.3 cm LV Systolic Diameter PLAX 3.2 cm IVS Diastolic Thickness 1.7 cm 0.6 - 1.0 / 0.6 - 0.9 cm IVS Systolic Thickness 2.0 cm LVPW Diastolic Thickness 1.5 cm 0.6 - 1.0 / 0.6 - 0.9 cm LVPW Systolic Thickness 1.9 cm LVOT Diameter 2.0 cm LV Ejection Fraction 2D Teich 58.4 % LV Ejection Fraction MOD 2C 68.3 % LV Ejection Fraction 2C AL 70.9 % LA Diameter 3.5 cm LA Width 3.0 cm LA Height 4.2 cm RA Width 3.3 cm RA Height 4.1 cm Aorta at Sinotubular Diameter 2.6 cm M-MODE Aortic Annulus Diameter 3.4 cm LA Ao Ratio MM 1.0 MV E Point Septal Separation 0.5 cm DOPPLER AV Peak Velocity 215.0 cm/s LVOT Peak Velocity 96.0 cm/s AV Area Cont Eq vti 1.5 cm squared AV Area Cont Eq pk 1.4 cm squared MV Peak Velocity 142.0 cm/s MV Area PHT 2.8 cm squared Mitral E to A Ratio 0.8 MV E' Velocity 52.5 cm/s Mitral E to MV E' Ratio 9.8 Mitral E to LV E' Lateral Ratio 6.9 Mitral E to LV E' Septal Ratio 17.1 TR Peak Velocity 227.8 cm/s TR Peak Gradient 20.8 mmHg TR Mean Velocity 193.0 cm/s TR Mean Gradient 15.3 mmHg TR Velocity Time Integral 67.6 cm TV Peak E Velocity 56.0 cm/s Right Atrial Pressure 8.0 mmHg Pulmonary Artery Systolic Pressu 28.8 mmHg PV Peak Velocity 93.0 cm/s RV Acceleration Time 0.1 s RV Ejection Time 0.3 s RV AcT/ET 0.4 FINDINGS Left Ventricle Normal left ventricular size and systolic function, EF 66 %. Mild left ventricular hypertrophy. No regional wall motion abnormalities. Grade I/IV diastolic dysfunction (abnormal relaxation filling pattern), normal to mildly elevated filling pressures. Right Ventricle The right ventricle is normal in size and function. Right Atrium The right atrium is normal in size. Left Atrium The left atrium is normal in size. Mitral Valve Trace mitral valve regurgitation. Aortic Valve Thickened aortic valve. Tricuspid Valve Trace tricuspid valve regurgitation. Pulmonic Valve Mild pulmonary valve regurgitation. Pericardium Normal pericardium without effusion. Aorta Normal ascending aorta dimension. IVC The inferior vena cava pulmonary and hepatic veins appear normal. CONCLUSIONS Normal left ventricular size and systolic function, EF 66 %. Mild left ventricular hypertrophy. No regional wall motion abnormalities. Grade I/IV diastolic dysfunction (abnormal relaxation filling pattern), normal to mildly elevated filling pressures. Features of aortic valve sclerosis. Trace mitral valve regurgitation. Mild pulmonary valve regurgitation. There is no pericardial effusion. There are no intracardiac masses. No similar previous studies are available for comparison. Dr Inez Christianson MD [facility] (Electronically Signed) Final Date: 13 March 2022 08:49 S
== END 2022-03-08 14:07 | disposition home or self-care (01) ==
PROVIDERS: PCP Nurse Practitioner Family; Visit Provider Internal Medicine Cardiovascular Disease
DX: R06.00 Dyspnea, unspecified (principal); I65.23 Occlusion and stenosis of bilateral carotid arteries; I50.9 Heart failure, unspecified; I37.1 Nonrheumatic pulmonary valve insufficiency; I08.0 Rheumatic disorders of both mitral and aortic valves; Z86.73 Personal history of transient ischemic attack (TIA), and cerebral infarction without residual deficits
CPT/HCPCS: 93306; 93880

== ENCOUNTER 2023-09-08 17:48 | Emergency (ER) | payer OTHER, SELFPAY ==
[2023-09-08 18:08] VITALS: BP 171/84; PULSE 74; RESP 14; TEMP 36.6; O2SAT 97
[2023-09-08 19:43] VITALS: BP 182/94; PULSE 69; RESP 14; O2SAT 98
[2023-09-08] MEDS: fluorescein 1 mg Strip EYE-LEFT (20:24)
--- NOTE | 2023-09-08 20:36 | ED_ITS ---
HPI - Eye Problem General: Chief complaint: Eye Problems Stated complaint: left eye problems Time Seen by Provider: 09/08/23 18:38 History of Present Illness: Kulwinder Jovel is a 68-year-old man that presents to the emergency department with left eye tearing, sensitivity to light, intermittent blurred vision (clears with eyedrops) and mild irritation. Patient denies any trauma to the eye. He states he woke up with the eye drainage. He reports drainage is more like tearing but does make his vision a little blurry. He denies fever, chills, chest pain, shortness of breath, cough, congestion. Denies any other complaints Patient does have history of diabetes and does see an p 3 arm[employer] ima technician routinely. He does intravitreal injections. Last 1 was done over 2 months ago. He denies any complications Review of Systems General: Reports: 10 or more systems reviewed and unremarkable except in HPI and below PFSH ED PFSH: Medical History Anemia CVA (cerebrovascular accident) Diabetes History of CVA with residual deficit HTN (hypertension) Iron deficiency anemia Surgical History Hx of hand surgery Family History Other CAD (coronary artery disease) Diabetes Hyperlipidemia Hypertension Denies family history of Clotting disorder Dementia Psychiatric illness Chronic kidney disease (CKD) Suicide Anesthesia complication Bleeding disorder Lung disease Cancer Stroke Social History Smoking and tobacco/nicotine status: never used tobacco/nicotine Alcohol intake: never Substance/Drug Use: never Lives independently: Yes Household members: spouse Physical Exam Const: COMMON NORMALS: no acute distress, patient oriented x3, healthy appearing and alert HENMT: COMMON NORMALS: normocephalic, atraumatic, hearing grossly normal bilaterally and moist oral mucous membranes HEAD & SCALP: normocephalic and atraumatic Eye: COMMON NORMALS: Equal, round and reactive pupils present, EOMs intact bilaterally and normal visual keene by confrontation VISUAL ACUITY: Yes other (rt 20/40, lt 20/50, bilat 20/40) ALIGNMENT: Yes alignment normal PERIORBITAL: periorbital findings normal EYELID: eyelids normal CONJUNCTIVA: Yes conjunctival abnormal positive left conjunctival icterus, conjunctival injection and discharge (Clear) other SCLERA: sclerae normal CORNEA: Yes corneas normal and fluorescein used PUPIL: Yes Equal, round and reactive pupils present EOM: No EOM abnormal and No movement deficit SLIT LAMP EXAM: Yes slit lamp exam performed with fluorescein and Yes lids/lashes/lacrimal system Lids/lashes/lacrimal system details: normal appearing Resp: COMMON NORMALS: normal respiratory effort, No retractions and No use of accessory muscles Cardio: COMMON NORMALS: regular rate and regular rhythm RATE: regular rate RHYTHM: regular rhythm GI: COMMON NORMALS: Soft to palpation and non-tender PALPATION: Yes Soft to palpation Neuro: COMMON NORMALS: patient oriented x3 SENSORIUM/ORIENTATION: Yes alert Course Vital Signs: Vital signs: Vital Signs Temperature 97.8 F 09/08/23 18:08 Pulse Rate 66 09/08/23 22:47 Respiratory Rate 16 09/08/23 22:47 Blood Pressure 144/77 09/08/23 22:47 Pulse Oximetry 96 09/08/23 22:47 Oxygen Delivery Me thod Room Air 09/08/23 18:08 MDM - Eye Problem Medical Decision Making Patient was evaluated in the emergency department for left eye irritation, drainage, and intermittent blurriness. Patient initially had blurry vision and we obtained visual acuity?rt 20/40, lt 20/50, bilat 20/40. I did a fluorescein strip and slit-lamp exam did not find any abnormalities. Viral conjunctivitis was my initial diagnosis. However with his history of diabetic retinopathy and intravitreal injections I considered complications from that injection. Patient has not had an injection in 2 months and has had no complications though. He also has no actual pain associated with his eye complaints and can see. I used some irrigation and Mcdonald flush his eye. His vision/complaints improved. Nursing used a ointment on the eye that made his symptoms worse. I have encouraged him to shower when he gets home and to gently flush out his eye. I have advised him to use refresh or official tears as needed. If his symptoms worsen in the next 24 hours or do not get better in the next 24 to 48 hours then he should contact his p 3 [employer] ima technician who he has an upcoming appointment with. Patient is agreeable. All questions answered No radiology studies performed this visit Discharge Plan Discharge Patient Disposition: Home Clinical Impression: Acute viral conjunctivitis Qualifiers: Laterality: left Qualified Code(s): B30.9 - Viral conjunctivitis, unspecified Condition: Stable Prescriptions: No Action ergocalciferol (vitamin D2) 1,250 mcg (50,000 unit) capsule 1,250 mcg PO DAILY ferrous gluconate 324 mg (37.5 mg iron) tablet 324 mg PO DAILY carvedilol 3.125 mg tablet 3.125 mg PO BID Qty: 60 5RF Rx Instructions: must administer with a meal/food lisinopril 10 mg tablet 10 mg PO DAILY Qty: 30 5RF atorvastatin 80 mg Tablet 80 mg PO BEDTIME tizanidine 4 mg Tablet See Rx Instructions .ROUTE .COMPLEX PRN (Reason: Spasms) Rx Instructions: (TAKES) 2MG PO BID ([facility] MED L[facility] HAS) 2MG PO TID PRN prazosin 1 mg Capsule 1 mg PO QPM clopidogrel [Plavix] 75 mg Tablet 75 mg PO DAILY@06 metformin 1,000 mg tablet 500 mg PO BID latanoprost 0.005 % drops 1 drp ophthalmic (eye) BEDTIME Rx Instructions: SEE PHARMACY COMMENTS lisinopril 5 mg tablet 5 mg PO BID Qty: 20 0RF Rx Instructions: take 1 PO BID for blood pressure Discharge Orders: Discharge ED (Routine); Ordered 09/08/23 Ordered By: Paulino Malhotra Referrals: Leeann Paulson FNP [Primary Care Provider] - Discharge Diet: Advance as tolerated Discharge Activity: Resume usual activity Patient Instructions: Conjunctivitis (ED), Pain Management Activity Restrictions/Additional Instructions: Please return to the emergency department for new, concerning, worsening symptoms Artificial tears?eyedrops as needed If you have worsening symptoms you need to come back. Please follow-up with your [employer] technician Dr. Maurice. Call Saturday for an appointment Coding Level of Care Code ED Logistics System Engineer for Breanne Arenas
[2023-09-08] MEDS: artificial tears Op Oint 3.5 gm 1 APPLIC EYE-LEFT (21:57)
[2023-09-08 22:47] VITALS: BP 144/77; PULSE 66; RESP 16; O2SAT 96
== END 2023-09-08 22:49 | disposition home or self-care (01) ==
PROVIDERS: Emergency Provider Nurse Practitioner; PCP Nurse Practitioner Family
DX: B30.9 Viral conjunctivitis, unspecified (principal); Z79.02 Long term (current) use of antithrombotics/antiplatelets; Z79.84 Long term (current) use of oral hypoglycemic drugs; Z86.73 Personal history of transient ischemic attack (TIA), and cerebral infarction without residual deficits; E11.9 Type 2 diabetes mellitus without complications; I10 Essential (primary) hypertension
CPT/HCPCS: 99283

== ENCOUNTER 2025-09-08 07:58 | Outpatient (RCR) | payer OTHER, SELFPAY | END 2025-09-08 23:59 | disposition home or self-care (01) | LOC: APT 07:58 | PROVIDERS: Visit Provider Nurse Practitioner Family | DX: I63.9 Cerebral infarction, unspecified (principal) | CPT/HCPCS: 97110; 97161 ==